=== PATIENT | female | born 1990 | race Caucasian/White ===

== ENCOUNTER 2021-01-30 09:18 | Inpatient (IN) ==
[2021-01-30] MEDS ORDERED: OXYTOCIN 30 UNITS/500 ML BAG IV PRN ×3 (10:06→22:56)
--- NOTE | 2021-01-30 10:11 | Progress Note ---
Date of Service January 30, 2021 Subjective Admit Note 30 F P0000 at 39.6 weeks admitted in labor. FHT Cat 1. GBS is negative. Cervix is 3/90/-1/vertex/posterior/intact/vertex. EFW 7.5 lbs. Will admit in active labor. Plans for Epidural. Anticipate normal delivery. Results & Data ([facility]) Vital Signs (Past 12 Hours) Vital Signs Temp Pulse Resp BP 01/30/21 09:31 36.8 C 20 01/30/21 09:28 92 H 121/60
[2021-01-30] MEDS ORDERED: ePHEDrine sulfate 50 MG/ML AMP ONE (10:23)
[2021-01-30] MEDS ORDERED: SODIUM CHLORIDE 0.9% INJ 10 ML VIAL ONE ×3 (10:24→18:43)
[2021-01-30] MEDS ORDERED: BUPIVACAINE 0.25% 30 ML VIAL ONE ×3 (10:24→18:43)
[2021-01-30] MEDS ORDERED: fentaNYL 2MCG/ML ROPIVACAINE 1.25MG/ML 100 ML BAG EPI ONE (10:24)
[2021-01-30] MEDS ORDERED: fentaNYL citrate 100 MCG/2 ML VIAL ONE ×2 (10:24→18:43)
[2021-01-30 10:25] LABS: Hematocrit (blood only) 33.5 % (37-47); Hemoglobin 11.3 g/dL (12.0-16.0); Mean Corpuscular Hemoglobin 31.2 pg (25-34); Mean Corpuscular Hgb Conc 33.7 g/dL (32-36); Mean Corpuscular Volume 92.5 fL (80-100); Mean Platelet Volume 12.5 fL (7.4-10.4); Platelet Count 326 K/uL (130-400); RDW Coefficient of Variation 14.5 % (11.5-14.5); RDW Standard Deviation 49.1 fL (36.4-46.3); Red Blood Count 3.62 M/uL (4.2-5.4)
[2021-01-30] MEDS ORDERED: ONDANSETRON INJ 2 MG/ML 2 ML VIAL IV PRN (10:29)
[2021-01-30] MEDS ORDERED: diphenhydrAMINE 50 MG/ML VIAL IV PRN (10:29)
[2021-01-30] MEDS ORDERED: ePHEDrine sulfate 50 MG/ML AMP IV PRN (10:29)
[2021-01-30] MEDS ORDERED: NALOXONE HCL 1 MG in SODIUM CHLORIDE 0.9% 1000ML 1,000 ML IV PRN (10:29)
[2021-01-30] MEDS ORDERED: NALOXONE HCL 0.4 MG/1 ML VIAL/CARP IV PRN (10:29)
[2021-01-30] MEDS: LACTATED RINGER'S 1,000 ML IV PRN ×4 (10:30→20:32)
--- NOTE | 2021-01-30 10:40 | Anesthesiology Consultation ---
Date of Service January 30, 2021 Assessment & Plan (1) Encounter for pre-operative examination: Chart Review Chart Review: Patient NOT seen in Pre Admission Testing and Acceptable Risk for Labor Epidural Consults Requested none ASA ASA2 Proposed Anesthesia Anesthesia Type: Labor Epidural and CSE Risk / Benefits Reviewed With: PT / POA / Parent / Guardian, Accepts Plan and Informed Consent Obtained History Height/Weight Weight: 90 kg Allergies Allergy/AdvReac Type Severity Reaction Status Date / Time No Known Allergies Allergy Verified 05/30/20 19:02 Medications Home Medications Medication Instructions Recorded Confirmed Last Taken bupropion HCl 300 mg PO DAILY 01/30/21 01/30/21 01/29/21 10:00 [id number] 1 tab PO DAILY 01/30/21 01/30/21 01/29/21 10:00 [] NPO Date Last Intake of Fluids: 01/30/21 Time Last Intake of Fluids: 09:30 Date Last Intake of Solids: 01/30/21 Time Last Intake of Solids: 09:30 Past Medical History Medical History Abnormal Papanicolaou smear of cervix 2015- WNL currently Anxiety and depression Fibroid Exercise / Class Metabolic Activity II 4-5 Yardwork/Stairs/Walk up hill Past Family History Family History Uncle Diabetes Grandmother (Maternal) Diabetes Past Surgical History Surgical History H/O colposcopy with cervical biopsy 2014 [place] teeth removed 2009 Past Anesthesia History No Hx of Anesthesia Complications and No Family Hx of Anesthesia Complications History of PONV No Hx of PONV and No Hx of Motion Sickness Social History Smoking Status: Former smoker Review of Systems no chest pain or sob Physical Exam Vital Signs Last Vital Signs Temp 36.8 C 01/30/21 09:31 Pulse 107 H 01/30/21 10:38 Resp 20 01/30/21 09:31 BP 110/67 01/30/21 10:33 Pulse Ox 96 01/30/21 10:38 ENMT Mouth: no TMJ abnormality Thyromental Distance: > or= 3.5 Finger Breadths Mallampati Class: II Neck normal visual inspection Respiratory normal respiratory effort Auscultation: lungs clear to auscultation bilaterally Cardiovascular Rate/Rhythm: regular rate and regular rhythm Musculoskeletal Spine: normal cervical ROM Neurologic moves all extremities Psychiatric Orientation: alert and oriented x 3 Testing Laboratory Results 01/30/21 10:13
[2021-01-30] MEDS ORDERED: PATIENT'S HEIGHT AND/OR WEIGHT NEEDED SCH (10:45)
[2021-01-30] MEDS ORDERED: CALCIUM CARBONATE 500 MG CHEWABLE TAB PO PRN (12:14)
[2021-01-30] MEDS ORDERED: OXYTOCIN 30 UNITS/500 ML BAG IV ONE (14:59)
--- NOTE | 2021-01-30 15:20 | Labor Progress Brief Note ---
Date of Service January 30, 2021 Assessment & Plan Admission and Anticipated Discharge Date Admission Date: January 30, 2021 Physical Exam Genitourinary: Manual OB Exam: + cervical dilation 4 cm, + cervical effacement, + station -1 and + amniotic fluid OB Exam Monitor Tracing: + external FHT monitor used, + external uterine monitor used, + category I and + normal FHT variability AROM with amni-hook clear fluid Results & Data ([facility]) Vital Signs (Past 12 Hours) Vital Signs Temp Pulse Resp BP Pulse Ox 01/30/21 15:17 81 114/70 01/30/21 15:13 86 97 01/30/21 15:08 90 96 01/30/21 15:03 85 95 01/30/21 15:00 36.7 C 20 01/30/21 14:59 93 H 96/51 L 01/30/21 14:58 85 95 01/30/21 14:53 81 96 01/30/21 14:48 93 H 96 01/30/21 14:45 80 103/65 01/30/21 14:43 84 95 01/30/21 14:38 81 95 01/30/21 14:33 82 95 01/30/21 14:29 81 99/55 L 01/30/21 14:28 84 96 01/30/21 14:23 86 95 01/30/21 14:18 95 H 96 01/30/21 14:15 80 112/77 01/30/21 14:13 87 96 01/30/21 14:08 100 H 94 01/30/21 14:05 87 94 01/30/21 14:03 96 H 95 01/30/21 13:59 89 94 01/30/21 13:58 91 H 90/52 L 94 01/30/21 13:53 88 93 01/30/21 13:48 82 93 01/30/21 13:45 81 95/50 L 01/30/21 13:43 80 94 01/30/21 13:41 81 94 01/30/21 13:38 87 95 01/30/21 13:36 78 94 01/30/21 13:33 85 96 01/30/21 13:30 96 H 95/55 L 01/30/21 13:28 85 97 01/30/21 13:23 81 96 01/30/21 13:20 87 94 01/30/21 13:18 90 94 01/30/21 13:17 77 114/58 L 01/30/21 13:13 95 H 94 01/30/21 13:11 89 94 01/30/21 13:08 84 95 01/30/21 13:03 95 H 96 01/30/21 13:00 81 116/59 L 01/30/21 12:58 82 95 01/30/21 12:53 90 95 01/30/21 12:48 101 H 95 01/30/21 12:44 82 97/58 L 01/30/21 12:43 82 96 01/30/21 12:39 90 94 01/30/21 12:38 91 H 95 01/30/21 12:34 95 H 93 01/30/21 12:33 92 H 94 01/30/21 12:30 92 H 86/52 L 01/30/21 12:28 83 96 01/30/21 12:23 92 H 95 01/30/21 12:18 85 97 01/30/21 12:14 109 H 115/62 01/30/21 12:13 110 H 96 01/30/21 12:08 109 H 96 01/30/21 12:03 104 H 96 01/30/21 12:00 87 117/58 L 01/30/21 11:58 105 H 96 01/30/21 11:53 87 97 01/30/21 11:48 112 H 96 01/30/21 11:44 93 H 129/67 01/30/21 11:43 93 H 97 01/30/21 11:38 123 H 98 01/30/21 11:33 95 H 97 01/30/21 11:28 91 H 97 01/30/21 11:23 104 H 111/57 L 97 01/30/21 11:18 93 H 107/57 L 97 01/30/21 11:13 97 H 97/53 L 98 01/30/21 11:08 97 H 98 01/30/21 11:07 96 H 115/58 L 01/30/21 11:03 101 H 96 01/30/21 11:02 36.8 C 20 01/30/21 11:00 102 H 118/68 01/30/21 10:58 104 H 106/65 97 01/30/21 10:56 100 H 104/55 L 01/30/21 10:54 96 H 115/63 01/30/21 10:53 97 H 96 01/30/21 10:52 99 H 123/69 01/30/21 10:48 96 H 97 01/30/21 10:45 101 H 93 01/30/21 10:43 104 H 96 01/30/21 10:38 107 H 96 01/30/21 10:33 111 H 110/67 93 01/30/21 09:31 36.8 C 20 01/30/21 09:28 92 H 121/60
[2021-01-30] MEDS ORDERED: NURSING L&D Epidural Breakthrough Pain Update ONE (15:25)
[2021-01-30] MEDS: fentaNYL 2MCG/ML ROPIVACAINE 1.25MG/ML 100 ML BAG EPI PRN ×2 (15:37→19:09)
--- NOTE | 2021-01-30 21:41 | Delivery Summary ---
Vaginal Delivery Summary Date of Service January 30, 2021 Vaginal Delivery Summary 30 F P0000 at 39.6 weeks with live female over intact perineum and nuchal cord x2 released at delivery of head with delayed cord clamping and Apgars 8/8 weight pending. Cord blood obtained followed by spontaneous delivery of intact placenta. No tears. EBL 150 ml. Final sponge and instrument count are correct. No tears. Mom and baby stable.
--- NOTE | 2021-01-30 21:59 | Anesthesia Procedure Note ---
Date of Service January 30, 2021 Anesthesia Post Epidural Note Vital Signs Vital Signs: Temp Pulse Resp BP Pulse Ox 37.4 C 98 H 20 104/55 L 97 01/30/21 21:05 01/30/21 21:47 01/30/21 21:18 01/30/21 21:47 01/30/21 21:28 Pain Intensity Bilateral Abdomen: Pain Intensity: 2 Notes Mental Status: alert / awake / arousable and participated in evaluation Nausea / Vomiting: adequately controlled Pain: adequately controlled Airway Patency, RR, SpO2: stable & adequate BP & HR: stable & adequate Hydration State: stable & adequate Neuraxial Anesthesia: was administered and sensory block is resolving Anesthetic Complications: no major complications apparent and Pt Satisfied with anesthetic care Epidural: Removed without complications and With tip intact
[2021-01-30] MEDS ORDERED: IBUPROFEN 600 MG TAB PO ONE (22:41)
[2021-01-30] MEDS ORDERED: DIPHTHERIA/TETANUS/PERTUSSIS 0.5 ML SYR/VIAL IM ONE (22:56)
[2021-01-30] MEDS ORDERED: bisacodyL 10 MG SUPP PR PRN (22:56)
[2021-01-30] MEDS ORDERED: SUPERCREAM 0.870% 15 GM JAR EXT PRN (22:56)
[2021-01-30] MEDS ORDERED: ACETAMINOPHEN 325 MG TAB PO PRN (22:56)
[2021-01-30] MEDS ORDERED: HYDROCORTISONE ACETATE 25 MG SUPP PR PRN (22:56)
[2021-01-30] MEDS ORDERED: LACTATED RINGER'S 1,000 ML IV SCH (22:56)
[2021-01-30] MEDS: BENZOCAINE 20% AER SPR 82.5 GM CAN EXT PRN (23:43)
[2021-01-31 06:56] LABS: Hematocrit (blood only) 29.8 % (37-47); Hemoglobin 10.1 g/dL (12.0-16.0); Mean Corpuscular Hgb Conc 33.9 g/dL (32-36); Mean Corpuscular Volume 91.4 fL (80-100); Mean Platelet Volume 12.5 fL (7.4-10.4); Platelet Count 288 K/uL (130-400); RDW Coefficient of Variation 14.6 % (11.5-14.5); RDW Standard Deviation 48.8 fL (36.4-46.3); Red Blood Count 3.26 M/uL (4.2-5.4); White Blood Count 14.56 K/uL (4.8-10.8)
[2021-01-31] MEDS: IBUPROFEN 600 MG TAB PO PRN ×3 (08:22→16:49)
--- NOTE | 2021-01-31 08:23 | Obstetrical Progress Note ---
Date of Service January 31, 2021 Assessment & Plan Admission and Anticipated Discharge Date Admission Date: January 30, 2021 Subjective Patient is seen and examined. She feels well, no complaints. Ambulating without dizziness Voiding without difficulty Tolerating regular diet with out N&V Bleeding is minimal No fever/ chills/ CP/ SOB/ N&V/ Leg pain Planing to breast feed, baby is in nursery Vital Signs Temp Pulse Pulse Resp BP BP Pulse Ox 01/31/21 07:46 83 99 01/31/21 07:45 76 99/58 L 01/31/21 07:30 36.8 C 84 18 99/58 L 98 01/31/21 04:05 93 H 91/53 L 01/31/21 04:00 36.8 C 16 01/30/21 23:32 92 H 113/59 L 01/30/21 23:30 37.3 C 18 01/30/21 23:17 107 H 94/54 L 01/30/21 23:02 102 H 96/60 L 01/30/21 23:00 18 01/30/21 22:47 96 H 109/63 01/30/21 22:32 90 106/64 01/30/21 22:30 20 01/30/21 22:17 103 H 112/68 01/30/21 22:15 18 01/30/21 22:02 86 113/74 01/30/21 22:00 18 01/30/21 21:47 98 H 104/55 L 01/30/21 21:45 16 01/30/21 21:31 105 H 106/61 01/30/21 21:30 20 01/30/21 21:28 105 H 97 01/30/21 21:23 107 H 96 01/30/21 21:19 116 H 116/61 01/30/21 21:18 100 H 20 95 01/30/21 21:13 106 H 97 01/30/21 21:08 96 H 96 01/30/21 21:05 37.4 C 01/30/21 21:03 101 H 94 01/30/21 21:00 18 01/30/21 20:58 93 H 98 01/30/21 20:53 83 97 01/30/21 20:50 84 134/67 01/30/21 20:48 81 96 07/01/21 20:43 102 H 97 01/30/21 20:38 91 H 96 01/30/21 20:35 102 H 122/84 01/30/21 20:33 97 H 96 01/30/21 20:30 18 01/30/21 20:28 86 98 Lab Results 01/30/21 01/30/21 01/30/21 Range/Units 10:13 10:37 10:37 WBC 12.40 H (4.8-10.8) K/uL RBC 3.62 L (4.2-5.4) M/uL Hgb 11.3 L (12.0-16.0) g/dL Hct 33.5 L (37-47) % MCV 92.5 (80-100) fL MCH 31.2 (25-34) pg MCHC 33.7 (32-36) g/dL RDW Std Deviation 49.1 H (36.4-46.3) fL RDW Coeff of Eros 14.5 (11.5-14.5) % Plt Count 326 (130-400) K/uL MPV 12.5 H (7.4-10.4) fL COVID-19 Eval [facility] SARS-CoV-2, RNA, NAAT NEGATIVE (NEGATIVE) 01/31/21 Range/Units 06:14 WBC 14.56 H (4.8-10.8) K/uL RBC 3.26 L (4.2-5.4) M/uL Hgb 10.1 L (12.0-16.0) g/dL Hct 29.8 L (37-47) % MCV 91.4 (80-100) fL MCH 31.0 (25-34) pg MCHC 33.9 (32-36) g/dL RDW Std Deviation 48.8 H (36.4-46.3) fL RDW Coeff of Eros 14.6 H (11.5-14.5) % Plt Count 288 (130-400) K/uL MPV 12.5 H (7.4-10.4) fL COVID-19 Eval Order SARS-CoV-2, RNA, NAAT (NEGATIVE) PE: General: Alert, orientedx3, NAD Abd: soft, NT, fundus firm, below Umbilicus Perineum intact, Lochia rubra minimal Ext; NT, no edema AP: 30 yo s/p , ppd# 1 VSS Afebrile doing well Continue routine care All questions were answered D/C home tomorrow Results & Data ([facility]) Vital Signs (Past 12 Hours) Vital Signs Temp Pulse Pulse Resp BP BP Pulse Ox 01/31/21 07:46 83 99 01/31/21 07:45 76 99/58 L 01/31/21 07:30 36.8 C 84 18 99/58 L 98 01/31/21 04:05 93 H 91/53 L 01/31/21 04:00 36.8 C 16 01/30/21 23:32 92 H 113/59 L 01/30/21 23:30 37.3 C 18 01/30/21 23:17 107 H 94/54 L 01/30/21 23:02 102 H 96/60 L 01/30/21 23:00 18 01/30/21 22:47 96 H 109/63 01/30/21 22:32 90 106/64 01/30/21 22:30 20 01/30/21 22:17 103 H 112/68 01/30/21 22:15 18 01/30/21 22:02 86 113/74 01/30/21 22:00 18 01/30/21 21:47 98 H 104/55 L 01/30/21 21:45 16 01/30/21 21:31 105 H 106/61 01/30/21 21:30 20 01/30/21 21:28 105 H 97 01/30/21 21:23 107 H 96 01/30/21 21:19 116 H 116/61 01/30/21 21:18 100 H 20 95 01/30/21 21:13 106 H 97 01/30/21 21:08 96 H 96 01/30/21 21:05 37.4 C 01/30/21 21:03 101 H 94 01/30/21 21:00 18 01/30/21 20:58 93 H 98 01/30/21 20:53 83 97 01/30/21 20:50 84 134/67 01/30/21 20:48 81 96 01/30/21 20:43 102 H 97 01/30/21 20:38 91 H 96 01/30/21 20:35 102 H 122/84 01/30/21 20:33 97 H 96 01/30/21 20:30 18 01/30/21 20:28 86 98 01/30/21 20:23 86 97
[2021-01-31] MEDS: DOCUSATE SODIUM 100 MG CAP PO SCH ×2 (08:28→20:51)
[2021-01-31] MEDS: PRENATAL VITAMIN 1 TAB PO SCH (08:28)
[2021-01-31] MEDS: buPROPion XL 300 MG TABCR PO SCH (08:28)
[2021-01-31] MEDS ORDERED: NON-FORMULARY MEDICATION (Prenatal Multivit-Min-Fe-Fa 1 mg Tablet) PO SCH (09:00)
[2021-01-31] MEDS ORDERED: bisacodyL 5 MG TABEC PO SCH (20:00)
[2021-02-01 06:04] LABS: Hematocrit (blood only) 29.9 % (37-47); Hemoglobin 9.8 g/dL (12.0-16.0)
[2021-02-01] MEDS: PRENATAL VITAMIN 1 TAB PO SCH (08:19)
[2021-02-01] MEDS: IBUPROFEN 600 MG TAB PO PRN (08:19)
[2021-02-01] MEDS: DOCUSATE SODIUM 100 MG CAP PO SCH (08:19)
[2021-02-01] MEDS: buPROPion XL 300 MG TABCR PO SCH (08:20)
[2021-02-01] MEDS: BENZOCAINE 20% AER SPR 82.5 GM CAN EXT PRN (08:20)
--- NOTE | 2021-02-01 09:11 | Obstetrical Progress Note ---
Date of Service February 01, 2021 Assessment & Plan (1) Normal course: PPD #2 pt doing well no complaints pt wishes to be disch home Subjective Ambulation: ambulating normally Voiding: no voiding problems Passing Gas:: Yes Diet Tolerance:: regular diet Lochia:: Small Feeding Type:: breast feeding Review of Systems All systems reviewed & are unremarkable except as noted in HPI & below Physical Exam Constitutional WD/WN, vitals as above well developed and well nourished Eyes PERRL, conjunctivae normal, anicteric sclerae Neck trachea midline, no thyromegaly Respiratory normal respiratory effort, lungs clear to auscultation Auscultation: no crackles, no rales and no wheezes Cardiovascular RRR, no murmur, no edema Gastrointestinal (Abdomen) normal bowel sounds, soft, nontender, no hepatosplenomegaly Uterus is below umbilicus Musculoskeletal no cyanosis or clubbing, extremities motor strength 5/5 Skin no rashes, warm and dry Neurologic patellar DTR's 2+ bilat, sensation intact Psychiatric A+Ox3, euthymic affect Genitourinary normal external appearance Results & Data ([facility]) Vital Signs (Past 12 Hours) Vital Signs Temp Pulse Resp BP Pulse Ox 02/01/21 08:00 36.7 C 87 17 99/66 L 98 01/31/21 23:24 36.8 C 81 16 99/65 L 98
== END 2021-02-01 19:50 | disposition home or self-care (01) | DRG 807 ==
LOC: OPB 09:18 → 4S1 09:21 → 4S2 01-31 09:42